=== PATIENT | male | born 1975 | race Caucasian/White ===

== ENCOUNTER 2025-01-11 12:44 | Outpatient (CLI) | payer MEDICARE, SELFPAY ==
--- NOTE | 2025-01-11 13:13 | XR_ITS ---
WS: [id number] XR hip RT 2-3V wo/w pel* [id number] REASON FOR EXAM: M25.551 - Pain in right hip FINDINGS: No fracture or focal bone lesion. Significant narrowing of the posterior inferior joint space with mild to moderate narrowing of the anterior superior joint space. Moderate subchondral sclerosis and cystic change of the acetabulum with moderate osteophytosis. Bony body adjacent to the anterior superior acetabular rim likely unfused apophysis. Similar abnormality on the left. Moderate convexity of the femoral head neck junction which may be due to the moderate osteophytosis of the femoral head. XR/XR hip RT 2-3V wo/w pel* [id number] IMPRESSION: Moderate to significant osteoarthritis of the right hip.
--- NOTE | 2025-01-11 13:13 | XR_ITS ---
WS: [email or web address] XR knee RT 3V* [id number] REASON FOR EXAM: M25.551 - Pain in right hip FINDINGS: [id number] amputation. Plate and screw fixation of previous complex fracture of the proximal tibia. The medial knee joint spaces relatively well-preserved with minimal subchondral sclerosis. There is significant irregularity of the tibial articular surface in the lateral knee joint space due to previous tibial plateau fracture. Moderate narrowing of the lateral joint space. Patellofemoral joint space may be mildly narrowed. There is mild subchondral sclerosis of the articular patella. XR/XR knee RT 3V* [id number] IMPRESSION: Moderate posttraumatic osteoarthritis. Previous complex proximal tibial fractur e with internal fixation as above.
== END 2025-01-11 12:45 | disposition home or self-care (01) ==
PROVIDERS: PCP Nurse Practitioner Family; Visit Provider Nurse Practitioner Family
DX: M25.551 Pain in right hip (principal)
CPT/HCPCS: 73502; 73562

== ENCOUNTER → 2025-01-23 11:01 | Outpatient (BNVA) | payer MEDICARE, SELFPAY | PROVIDERS: PCP Nurse Practitioner Family; Visit Provider Specialist | DX: M17.11 Unilateral primary osteoarthritis, right knee (principal); S88.111A Complete traumatic amputation at level between knee and ankle, right lower leg, initial encounter; X58.XXXA Exposure to other specified factors, initial encounter | CPT/HCPCS: 20610; 99205; J7318 ==

== ENCOUNTER → 2025-01-28 11:19 | Outpatient (BNVA) | payer MEDICARE, SELFPAY | PROVIDERS: PCP Nurse Practitioner Family; Visit Provider Specialist | DX: M16.11 Unilateral primary osteoarthritis, right hip (principal) | CPT/HCPCS: 99214 ==